=== PATIENT | male | born 1990 | race Caucasian/White ===

== ENCOUNTER 2016-08-15 00:36 | Emergency (ER) | payer OTHER ==
[2016-08-15 01:15] VITALS: BP 163/92; PULSE 91; RESP 20; TEMP 98
[2016-08-15] MEDS ORDERED: METOCLOPRAMIDE HCL 10 MG/2 ML VIAL IV PUSH ONE (01:45)
[2016-08-15] MEDS ORDERED: BACL20TA PO (02:14)
[2016-08-15] MEDS ORDERED: ZOFR4SOL PO (02:56)
--- NOTE | 2016-08-15 02:57 | PD ---
HPI Chief Complaint: Foreign Body Time Seen by Provider: 01:35 Travel History International Travel<30 days: No Contact w/Intl Traveler<30days: No Traveled to known affect area: No History of Present Illness HPI 26-year-old male presents to the emergency department by private transportation the care of his parents for sensation of retained food bolus in the esophagus. Patient has cerebral palsy but is able to relay some of his history with the assistance of his mother. This evening while eating dinner which contained fish patient had sensation of foreign body or food being stuck in the throat or upper esophagus. Patient vomited. Mother attempted to provide him with different foodstuffs and fluids but vomited several times. Patient was able to handle oral secretions well and sips of liquids. Because of ongoing discomfort with swallowing and food bolus sensation presented to the emergency department for further evaluation. No report of sharp stabbing pain such as retained fishbone. Patient has had no blood in his emesis. Due to ongoing symptoms presents now for further evaluation. Patient has had no previous issues with eating or drinking foods and liquids. Mother states other family members ate same food without issues. Current pain is 0/10 in intensity. PFSH Past Medical History Narrative Medical Cerebral palsy spastic quadriplegia heel surgery no tobacco use nursing notes reviewed Cerebral Palsy: Yes (pt has random, uncontrolled movements, in wheelchair) Immunizations Current: Yes Tetanus Vaccination: > 5 Years Influenza Vaccination: No Social History Alcohol Use: No Tobacco Use: No Allergies-Medications (Allergen,Severity, Reaction): Coded Allergies: No Known Allergies (Unverified , 08/15/16) Reported Meds & Prescriptions Reported Meds & Active Scripts Active Zofran Liq (Ondansetron HCl) 4 Mg/5 Ml Soln 4 Mg PO Q6H PRN Reported Baclofen 20 Mg Tab 20 Mg PO TID Review of Systems Except as stated in HPI: all other systems reviewed are Neg General / Constitutional: No: Fever, Chills HENT: Positive: Sore Throat, No: Congestion Cardiovascular: No: Chest Pain or Discomfort Respiratory: No: Cough, Shortness of Breath, Wheezing Gastrointestinal: Positive: Nausea, Vomiting, No: Abdominal Pain Genitourinary: No: Flank Pain Musculoskeletal: No: Pain Skin: No Rash Neurologic: No: Weakness Psychiatric: No: Anxiety Hematologic/Lymphatic: No: Lymph Node Enlargement Physical Exam Narrative GENERAL: Well-developed well-nourished male in no acute distress no respiratory distress SKIN: Warm and dry. HEAD: Normocephalic. EYES: No scleral icterus. No injection or drainage. ENT: Mucous members moist airway is patent no mucosal edema or erythema. NECK: Supple, trachea midline. No JVD or lymphadenopathy. CARDIOVASCULAR: Regular rate and rhythm without murmurs, gallops, or rubs. RESPIRATORY: Breath sounds equal bilaterally. No accessory muscle use. GASTROINTESTINAL: Abdomen soft, non-tender, nondistended. MUSCULOSKELETAL: No cyanosis, or edema. BACK: Nontender without obvious deformity. No CVA tenderness. Data Data Last Documented VS Vital Signs Date Time Temp Pulse Resp B/P Pulse Ox O2 Delivery O2 Flow Rate FiO2 08/15/16 03:02 88 18 119/71 99 08/15/16 01:15 98.0 Orders ^ Saline Lock (08/15/16 01:39) Metoclopramide Inj (Reglan Inj) (08/15/16 01:45) MDM Medical Decision Making Medical Screen Exam Complete: Yes Emergency Medical Condition: Yes Medical Record Reviewed: Yes Differential Diagnosis Esophageal spasm odynophagia esophageal foreign body Narrative Course Patient administered 1 dose of Reglan 10 mg IV Patient given oral trial with improvement of symptoms and states only mild residual sore throat but no further foreign body sensation; it is 2:57 AM patient stable for outpatient management with his parents and follow-up with his primary care provider Diagnosis Primary Impression: Odynophagia Additional Impression: Esophageal spasm Referrals: Family Practice Physician 2 days Patient Instructions: General Instructions Additional Instructions: Recommend clear liquid diet for next 6-12 hours advance to soft diet then regular diet as tolerated Increase fluid hydration Take medication as prescribed as needed for nausea and/or vomiting Follow-up with primary care provider on Tuesday call office to schedule follow- up appointment and 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
[2016-08-15 03:02] VITALS: BP 119/71
== END 2016-08-15 03:05 | disposition home or self-care (01) ==
LOC: PHED 00:36
DX: K22.4 Dyskinesia of esophagus (principal); R13.10 Dysphagia, unspecified; R11.10 Vomiting, unspecified; G80.9 Cerebral palsy, unspecified
CPT/HCPCS: 96374; 99283; J2765